=== PATIENT | male | born 1970 | race Caucasian/White ===

== ENCOUNTER 2017-08-04 05:42 | Emergency (ER) | payer BC, MEDICARE ==
[2017-08-04] MEDS ORDERED: Ondansetron ODT 8 MG TAB ONE ×2 (06:32→07:03)
[2017-08-04] MEDS ORDERED: Acetaminophen 500 MG TAB ONE (06:51)
[2017-08-04] MEDS ORDERED: Promethazine HCl 25 MG/ML VIAL ONE (07:03)
[2017-08-04] MEDS ORDERED: Morphine 4 MG/ML VIAL ONE (07:36)
[2017-08-04 07:38] LABS: Anion Gap 15 mmol/L (10-20); BUN (Urea Nitrogen) 72 mg/dL (8.9-20.6); Calc. Creatinine Clearance 0 mL/min (70-130); Calcium 9.1 mg/dL (7.8-10.44); Carbon Dioxide 27 mmol/L (22-29); Chloride 103 mmol/L (98-107); Estimated GFR-MDRD 11; Glucose 145 mg/dL (70-105); Sodium 141 mmol/L (136-145)
[2017-08-04] MEDS ORDERED: Metoclopramide HCl 10 MG/2 ML VIAL ONE (08:01)
[2017-08-04] MEDS ORDERED: diphenhydrAMINE 50 MG/ML VIAL ONE (08:01)
== END 2017-08-04 08:20 | disposition home or self-care (01) ==
LOC: ERS 05:42
DX: I12.0 Hypertensive chronic kidney disease with stage 5 chronic kidney disease or end stage renal disease (principal); N18.6 End stage renal disease; E78.5 Hyperlipidemia, unspecified; Z79.899 Other long term (current) drug therapy
CPT/HCPCS: 36415; 80048; 96372; 96374; 96375; J1200; J2270; J2550; J2765

== ENCOUNTER 2017-08-07 10:57 | Emergency (ER) | payer BC, MEDICARE ==
[2017-08-07] MEDS ORDERED: diphenhydrAMINE 50 MG/ML VIAL ONE (12:04)
[2017-08-07] MEDS ORDERED: Metoclopramide HCl 10 MG/2 ML VIAL ONE (12:30)
[2017-08-07 12:31] LABS: #Eosinphils 0.2 thou/uL (0.0-0.7); #Lymphocytes 1.5 thou/uL (1.20-3.40); #Monocytes 0.7 thou/uL (0.11-0.59); #Neutrophils 6.2 thou/uL (1.40-6.50); %Basophils 0.5 % (0.0-1.0); %Lymphocytes 16.9 % (21.0-51.0); %Monocytes 8.6 % (0.0-10.0); Hemoglobin 12.7 g/dL (14.0-18.0); Mean Corpuscular HGB CONC 33.5 g/dL (32.0-36.0); Mean Corpuscular Hemoglobin 33.5 pg (27.0-31.0); Mean Platelet Volume 7.3 fL (7.4-10.4); Platelet Count 261 thou/uL (130-400); RBC Distribution Width 12.3 % (11.5-14.5); White Blood Cell (WBC) Count 8.6 thou/uL (4.8-10.8)
[2017-08-07 12:45] LABS: ALT (SGPT) 17 U/L (8-55); AST (SGOT) 22 U/L (5-34); Albumin 3.3 g/dL (3.5-5.0); Alkaline Phosphatase 89 U/L (40-150); Anion Gap 14 mmol/L (10-20); BUN (Urea Nitrogen) 63 mg/dL (8.9-20.6); Bilirubin, Total 0.3 mg/dL (0.2-1.2); Calc. Creatinine Clearance 0 mL/min (70-130); Calcium 8.8 mg/dL (7.8-10.44); Carbon Dioxide 26 mmol/L (22-29); Chloride 105 mmol/L (98-107); Estimated GFR-MDRD 10; Globulin 2.8 g/dL (2.4-3.5); Glucose 102 mg/dL (70-105); Protein, Total 6.1 g/dL (6.0-8.3); Sodium 141 mmol/L (136-145)
--- NOTE | 2017-08-07 13:15 | CT ---
CT BRAIN NONCONTRAST: HISTORY: A 46-year-old male with headache. FINDINGS: The ventricles are normal in size and configuration. There is no midline shift or any other mass eff ect. There is no evidence of acute intracranial hemorrhage, large cortical infarct, or extraaxial fl uid collection. The mckinney matter /white matter differentiation is maintained. The calvarium is intac t. The tympanomastoid cavities, and the upper portions of the paranasal sinuses included in these im ages, are grossly clear. IMPRESSION: Normal. jn [] POS: ISAIAH
[2017-08-07] MEDS ORDERED: Ketorolac Tromethamine 30 MG/ML VIAL ONE (13:31)
[2017-08-07] MEDS ORDERED: Magnesium Sulfate 2 GM/NS 0.9% 50 ML BAG ONE (13:32)
[2017-08-07] MEDS ORDERED: Water For Inject, Bacteriostat 30 ML ONE (13:32)
[2017-08-07] MEDS ORDERED: methylPREDNISolone Sod Succ/PF 125 MG/2 ML VIAL ONE (13:32)
== END 2017-08-07 17:15 | disposition home or self-care (01) ==
LOC: ERS 10:57
DX: R51 Headache (principal); E78.5 Hyperlipidemia, unspecified; I12.0 Hypertensive chronic kidney disease with stage 5 chronic kidney disease or end stage renal disease; N18.6 End stage renal disease; M10.9 Gout, unspecified
CPT/HCPCS: 70450; 80053; 85025; 96365; 96375; J1200; J1885; J2765; J2930; J3475